=== PATIENT | male | born 1935 | race Caucasian/White ===

== ENCOUNTER 2022-04-12 12:10 | Observation (INO) | payer MEDICARE ==
[~2022-04-12] VITALS: Ht 172.7 cm; Wt 87.0 kg
[2022-04-12] VITALS (18 sets, daily range): BP systolic 98–133; BP diastolic 54–81
[2022-04-12 12:36] LABS: BASO% 0.3 % (0-3); EOS% 1.1 % (0-8); HEMATOCRIT 41.6 % (39.0-50.0); HEMOGLOBIN 14.1 g/dl (14.0-18.0); IMMATURE GRANULOCYTES 0.6 % (0.0-5.0); LYMPH% 22.8 % (15-41); MEAN CELL VOLUME 97.4 fL CALC (80.0-100.0); MEAN CORPUSCULAR HGB CONC 33.9 g/dL CAL (32.0-36.0); MONO% 8.2 % (2-13); NEUT# 6.03 thou/uL (1.82-7.42); RED BLOOD COUNT 4.27 mill/uL (4.70-6.10); RED CELL DISTRI WIDTH 14.3 % (11.5-15.5)
[2022-04-12 12:49] LABS: INTERNATIONAL NORMALIZED RATIO 1.7 RATIO (0.7-1.3); PROTHROMBIN TIME 16.4 SECONDS (9.0-12.5)
[2022-04-12 12:51] LABS: LIPASE 151 u/l (23-300)
[2022-04-12 12:52] LABS: ALBUMIN 4.5 g/dL (3.2-5.0); ALKALINE PHOSPHATASE 59 u/l (38-126); ANION GAP 13 (6-22 (CALC)); BILIRUBIN, TOTAL 0.8 mg/dL (0.0-1.4); BUN 26 mg/dL (8-23); BUN/CREATININE RATIO 20 (12-20 (CALC)); CARBON DIOXIDE 22 mmol/l (22-30); CHLORIDE 106 mmol/l (95-108); CREATININE 1.3 mg/dL (0.7-1.3); GFR FOR AFR.AMER. > 60 ML/MIN (>=60 (CALC)); GFR OTHER RACES 52 ML/MIN (>=60 (CALC)); POTASSIUM 4.3 mmol/l (3.5-5.1); SGOT/AST 34 u/l (19-48); SODIUM 137 mmol/l (137-146)
[2022-04-12] MEDS ORDERED: METFORMIN HCL500 M1 PO (16:44)
[2022-04-12] MEDS ORDERED: XARELTO20 MG PO (16:45)
[2022-04-12] MEDS ORDERED: ENTRESTO 24-261 TAB PO (16:45)
[2022-04-12] MEDS ORDERED: FUROSEMIDE20 MG PO (16:46)
[2022-04-12] MEDS ORDERED: METOPROL TAR25 MG PO (16:47)
[2022-04-12] MEDS ORDERED: PROTONIX40 M2 PO (16:47)
[2022-04-12] MEDS ORDERED: TAMSULOSIN HCL0.4 MG PO (16:49)
[2022-04-12] MEDS ORDERED: ATORVASTATIN CA80 MG PO (16:50)
[2022-04-13 00:32] VITALS: BP 89/47
[2022-04-13 04:37] VITALS: BP 124/75
[2022-04-13 06:27] LABS: BASO% 0.3 % (0-3); EOS% 1.6 % (0-8); HEMATOCRIT 37.6 % (39.0-50.0); HEMOGLOBIN 12.9 g/dl (14.0-18.0); IMMATURE GRANULOCYTES 0.4 % (0.0-5.0); LYMPH% 19.5 % (15-41); MEAN CELL VOLUME 96.7 fL CALC (80.0-100.0); MEAN CORPUSCULAR HGB 33.2 pG CALC (26.0-32.0); MEAN CORPUSCULAR HGB CONC 34.3 g/dL CAL (32.0-36.0); MONO% 8.8 % (2-13); NEUT# 5.06 thou/uL (1.82-7.42); NEUT% 69.4 % (42-76); RED BLOOD COUNT 3.89 mill/uL (4.70-6.10); RED CELL DISTRI WIDTH 14.5 % (11.5-15.5)
[2022-04-13 06:48] VITALS: BP 106/68
[2022-04-13 07:06] LABS: ALKALINE PHOSPHATASE 50 u/l (38-126); ANION GAP 9 (6-22 (CALC)); BILIRUBIN, TOTAL 0.6 mg/dL (0.0-1.4); BUN 24 mg/dL (8-23); BUN/CREATININE RATIO 20 (12-20 (CALC)); CALCULATED LDLCHOLESTEROL 41 mg/dL (62-129 (CALC)); CARBON DIOXIDE 22 mmol/l (22-30); CHLORIDE 109 mmol/l (95-108); CHOLESTEROL HDL RATIO 2.2 (<4.4 (CALC)); CREATININE 1.2 mg/dL (0.7-1.3); GFR FOR AFR.AMER. > 60 ML/MIN (>=60 (CALC)); GFR OTHER RACES 57 ML/MIN (>=60 (CALC)); HDL CHOLESTEROL 48 mg/dL (>=40); MAGNESIUM 1.8 mg/dL (1.6-2.3); SGOT/AST 22 u/l (19-48); SODIUM 136 mmol/l (137-146); TOTAL CHOLESTEROL 108 mg/dl (0-199); TOTAL PROTEIN 6.5 g/dL (6.3-8.2); TOTAL TRIGLYCERIDES 93 mg/dl (30-149); VLDL CHOLESTROL 19 mg/dl (0-38 (CALC))
[2022-04-13 07:08] LABS: ALBUMIN 3.5 g/dL (3.2-5.0)
[2022-04-13 10:48] VITALS: BP 108/57
== END 2022-04-13 13:33 | disposition home or self-care (01) ==
LOC: ED 12:10 → ED-I 14:58 → ED 15:07 → MS2 15:08
PROVIDERS: Family Medicine; Nurse Practitioner; ADMIT Internal Medicine; ATTEND Internal Medicine
DX: R07.9 Chest pain, unspecified (principal); I11.0 Hypertensive heart disease with heart failure; I50.9 Heart failure, unspecified; E11.9 Type 2 diabetes mellitus without complications; I25.10 Atherosclerotic heart disease of native coronary artery without angina pectoris; I48.91 Unspecified atrial fibrillation; K21.9 Gastro-esophageal reflux disease without esophagitis; Z79.01 Long term (current) use of anticoagulants; Z95.5 Presence of coronary angioplasty implant and graft; Z79.84 Long term (current) use of oral hypoglycemic drugs
CPT/HCPCS: J1160; Q9967

== ENCOUNTER 2022-07-09 13:21 | Emergency (ER) | payer MEDICARE ==
[~2022-07-09] VITALS: Ht 172.7 cm; Wt 89.0 kg
[~2022-07-09 13:21] MED LIST: ATORVASTATIN CA80 MG PO; ENTRESTO 24-261 TAB PO; FUROSEMIDE20 MG PO; METFORMIN HCL500 M1 PO; METOPROL TAR25 MG PO; PROTONIX40 M2 PO; TAMSULOSIN HCL0.4 MG PO; XARELTO20 MG PO
[2022-07-09 15:17] VITALS: BP 127/62
== END 2022-07-09 16:21 | disposition home or self-care (01) ==
LOC: ED 13:21
DX: S41.112A Laceration without foreign body of left upper arm, initial encounter (principal); S41.111A Laceration without foreign body of right upper arm, initial encounter; I11.0 Hypertensive heart disease with heart failure; I50.9 Heart failure, unspecified; I48.91 Unspecified atrial fibrillation; I42.9 Cardiomyopathy, unspecified; I25.10 Atherosclerotic heart disease of native coronary artery without angina pectoris; W01.0XXA Fall on same level from slipping, tripping and stumbling without subsequent striking against object, initial encounter; Z79.01 Long term (current) use of anticoagulants; Z95.5 Presence of coronary angioplasty implant and graft